=== PATIENT | male | born 1965 | race Caucasian/White ===

== ENCOUNTER → 2016-09-08 | Outpatient (CLI) | payer OTHER ==
--- NOTE | 2016-09-08 17:23 | CT ---
CT Brain (Without Contrast) at 1516 hours History: G95.5, compression of the brain, neuropathy. Technique: Axial computed tomographic images of the brain, without contrast. Dose reduction techniq ues were utilized. Comparison: None available. Findings: Ventricles, cisterns, and sulci are normal, without atrophy, hydrocephalus, midline shift/ herniation, or epidural/subdural hematomas. No acute intraparenchymal hemorrhage, definite infarct, or mass effect. Bone windows demonstrate no displaced fractures. Low-lying cerebellar tonsils, whic h appear rounded but extend inferior to the foramen magnum. Right maxillary sinus 1.7- x 1.5-cm muco us retention cyst or polyp. Impression: 1. Right maxillary sinus mucous retention cyst or polyp. 2. Low-lying cerebellar tonsils. 3. No acute infarct, acute hemorrhage, hydrocephalus, or mass effect. 4. Recommend MRI of the brain, without contrast, if there is continued clinical concern.
== END ==
LOC: FIMAGING 14:53
PROVIDERS: ATTEND Psychiatry & Neurology Neurology
DX: J34.1 Cyst and mucocele of nose and nasal sinus (principal)